=== PATIENT | male | born 1960 | race Caucasian/White ===

== ENCOUNTER 2023-06-29 08:10 | Emergency (ER) | payer OTHER ==
[2023-06-29 08:46] VITALS: BP 145/84; PULSE 87; RESP 16; TEMP 98.5; BMI 24.2
[2023-06-29] MEDS ORDERED: IBUPROFEN 600 MG TABLET (FP) PO ONE (10:05)
[2023-06-29] MEDS: IBUPROFEN 600 MG TABLET (FP) PO ONE (10:16)
== END 2023-06-29 12:08 | disposition home or self-care (01) ==
LOC: JERFT 08:10 → JER 08:10 → JERFT 12:08
DX: M54.6 Pain in thoracic spine (principal); M54.2 Cervicalgia; V49.40XA Driver injured in collision with unspecified motor vehicles in traffic accident, initial encounter; Y92.410 Unspecified street and highway as the place of occurrence of the external cause
CPT/HCPCS: 71046-TC-FY; 99283-25